=== PATIENT | male | born 1975 | race Caucasian/White ===

== ENCOUNTER 2016-10-25 21:51 | Emergency (ER) | payer SELFPAY ==
[~2016-10-25] VITALS: Ht 177.8 cm; Wt 81.6 kg
[~2016-10-25 21:51] MED LIST: CALAMINE LOTION; MEDLIST
[2016-10-25 21:57] VITALS: TEMP 37; Ht 177.8 cm; Wt 81.6 kg
[2016-10-25] MEDS ORDERED: ALBUT/IPRATROP 3MG/0.5MG NEB 3 ML VIAL INH STA (22:09)
--- NOTE | 2016-10-25 22:14 | EMERGENCY ROOM VISIT NOTE ---
History Report prepared by Gerald: Sandra Tellez Under the Supervision of: Dr. Sam Giordano D.O. First contact with patient: 22:04 Chief Complaint: SHORTNESS OF BREATH Stated Complaint: SOB,HEAVY WHEEZING History of Present Illness The patient is a 41 year old male who presents to the Emergency Room with complaints of constant shortness of breath beginning 2 days ago. The patient was working in a hot kitchen and was cleaning up when he felt shortness of breath. He reports that his shortness of breath is exacerbated in a hot environment. He has been coughing, but does not have a fever or rash. The patient has a history of asthma and uses a bronchodilator. He has not smoked a cigarette in over a year, but does smoke cigars. He denies fevers, or rashes. Patient states that he's been taking [id number] bronchial aide with some help of his shortness of breath. Patient is a nonsmoker. Patient states that he is going to [place] next week and would like to be better. Patient denies hemoptysis. Patient denies dyspnea on exertion orthopnea. There are no other mitigating or alleviating factors Source of History: patient Onset: 2 days ago Quality: other (shortness of breath) Timing: constant Associated Symptoms: + cough, No fevers, No rash Review of Systems See HPI for pertinent positives and negatives. A total of ten systems were reviewed and were otherwise negative. Past Medical & Surgical Medical Problems: (1) Asthma Family History No pertinent family history stated. Social History Smoking Status: Former Smoker Occupation Status: employed Current/Historical Medications Miscellaneous Medications !Med List Verified In Ed (!Med List Verified In Ed) [Calamine Lotion] Allergies Coded Allergies: Aspirin (Unverified Allergy, Mild, 07/01/09) Guaifenesin (Unverified Allergy, Mild, 07/01/09) Phenylpropanolamine (Unverified Allergy, Mild, 07/01/09) Poison Jeannine Extract/Poison [place] Extra (Unverified Allergy, RASH, 10/21/09) Physical Exam Vital Signs Date Time Temp Pulse Resp B/P (MAP) Pulse Ox O2 Delivery O2 Flow Rate FiO2 10/25/16 22:10 92 Room Air 10/25/16 21:57 37.0 114 20 142/86 92 Room Air Physical Exam GENERAL: Awake, alert, well-appearing, in no distress HENT: Normocephalic, atraumatic. Oropharynx unremarkable. EYES: Normal conjunctiva. Sclera non-icteric. NECK: Supple. No nuchal rigidity. FROM. No JVD. RESPIRATORY:Wheezing bilaterally. CARDIAC: Regular rate, normal rhythm. Extremities warm and well perfused. Pulses equal. ABDOMEN: Soft, non-distended. No tenderness to palpation. No rebound or guarding. No masses. RECTAL: Deferred. MUSCULOSKELETAL: Chest examination reveals no tenderness. The back is symmetrical on inspection without obvious abnormality. There is no CVA tenderness to palpation. No joint edema. LOWER EXTREMITIES: Calves are equal size bilaterally and non-tender. No edema. No discoloration. NEURO: Normal sensorium. No sensory or motor deficits noted. SKIN: No rash or jaundice noted. Medical Decision & Procedures ER Provider Diagnostic Interpretation: X-ray: Per my interpretation, radiologist review. CHEST ONE VIEW PORTABLE HISTORY: Short of breath. COMPARISON: None. FINDINGS: The lungs are clear. Cardiac silhouette is normal in size. No pleural effusions. No pneumothorax. IMPRESSION: No acute process. Electronically signed by: Anatoly Boogie M.D. 10/25/2016 10:50 PM Dictated Date/Time: 10/25/2016 10:49 PM Medications Administered Medications (Trade) Dose Ordered Sig/Justin Route Start Time Stop Time Status Last Admin Dose Admin Prednisone (PredniSONE TAB) 60 mg NOW STAT PO 10/25/16 22:09 10/25/16 22:14 DC 10/25/16 22:16 60 MG Albuterol/ Ipratropium (Duoneb) 3 ml NOW STAT INH 10/25/16 22:09 10/25/16 22:14 DC 10/25/16 22:16 3 ML ED Course 2202: The patient was evaluated in room B2. A complete history and physical exam was performed. 2208: Ordered Duoneb 3 ml INH, Prednisone Tab 60 mg PO. 8: I reassessed the patient, and he feels much better. He still has slight wheezing, but he is much improved. Medical Decision Differential diagnoses include but are not limited to; asthma, pneumonia, upper respiratory infection, and bronchitis. I review the patient's blood pressure with him, I reviewed meds, patient feels much improved at 2300 hrs. decreased wheezing and states much better after DuoNeb treatment. I discussed evaluation with the patient. Patient's chest x- ray is negative for any acute infiltrate. I will treat him for acute asthma and bronchitis Impression Primary Impression: Acute bronchitis Scribe Attestation The scribe's documentation has been prepared under my direction and personally reviewed by me in its entirety. I confirm that the note above accurately reflects all work, treatment, procedures, and medical decision making performed by me. Departure Information Dispostion Home / Self-Care Prescriptions Prednisone (Prednisone) 50 Mg Tab 50 MG PO DAILY for 4 Days, #4 TAB Prov: Sam Giordano, DO 10/25/16 Albuterol Hfa (VENTOLIN HFA) 200 Puffs/93225 Mcg Aers 2-4 PUFFS INH Q6H, #1 INHALER Prov: Sam Giordano, DO 10/25/16 Referrals No Doctor, Assigned (PCP) Patient Instructions Bronchitis Acute, My [facility] Health Problem Qualifiers Primary Impression: Acute bronchitis Bronchitis organism: unspecified organism Qualified Codes: J20.9 - Acute bronchitis, unspecified
--- NOTE | 2016-10-25 22:51 | DIAGNOSTIC IMAGING REPORT ---
CHEST ONE VIEW PORTABLE HISTORY: Short of breath. COMPARISON: None. FINDINGS: The lungs are clear. Cardiac silhouette is normal in size. No pleural effusions. No pneumothorax. IMPRESSION: No acute process. Electronically signed by: Anatoly Boogie M.D. 10/25/2016 10:50 PM Dictated Date/Time: 10/25/2016 10:49 PM
[2016-10-25] MEDS ORDERED: VNTHFA/IN INH (23:09)
[2016-10-25] MEDS ORDERED: PRED50TA PO (23:09)
[2016-10-25 23:28] VITALS: BP 126/62; PULSE 82; O2SAT 96
== END 2016-10-25 23:29 | disposition home or self-care (01) ==
LOC: C.EDB 21:53
DX: J20.9 Acute bronchitis, unspecified (principal); J45.909 Unspecified asthma, uncomplicated; Z87.891 Personal history of nicotine dependence